=== PATIENT | female | born 1995 | race Caucasian/White ===

== ENCOUNTER 2021-06-18 15:57 | Emergency (ER) | payer BC, OTHER ==
[~2021-06-18] VITALS: Ht 165.1 cm; Wt 54.4 kg
[2021-06-18] MEDS ORDERED: OLANZAPINE 10 MG VIAL IM ONE ×2 (16:25→16:30)
[2021-06-18] MEDS ORDERED: LORAZEPAM 2 MG/1 ML VIAL ONE (16:30)
--- NOTE | 2021-06-18 16:55 | NUR ---
Strategic Account Director assumes care: received patient asleep on her right side, on a gurney inside ER bed 3, sedated with IV Ativan. Patient was heard earlier cursing loudly and being belligerent with the nurse discharge Mojgan in the ER hallways. [facility] security screener, [employer] officers and paramedics were assisting our nurse discharge Mojgan. Maintained on continuous cardiac, BP & SpO2 monitors with alarms set,on & audible.
[2021-06-18 17:04] LABS: HEMATOCRIT 40.9 % (31.2-41.9); MEAN CORPUSCULAR HEMOGLOBIN 29.8 uug (24.7-32.8); MEAN CORPUSCULAR VOLUME 89.1 fL (75.5-95.3); PLATELET COUNT (AUTO) 242 K/uL (179-408)
[2021-06-18 17:10] LABS: CARBON DIOXIDE 22 mmol/L (21-32); CHLORIDE 104 mmol/L (98-107); CREATININE 0.5 mg/dL (0.6-1.3); GLUCOSE 90 mg/dL (74-106); POTASSIUM 3.9 mmol/L (3.5-5.1); UREA NITROGEN, BLOOD 9 mg/dL (7-18)
[2021-06-18 17:16] LABS: ACETAMINOPHEN < 2.0 ug/mL (10-30); ALANINE AMINOTRANSFERASE 18 U/L (14-59); ALKALINE PHOSPHATASE 40 U/L (50-136); ASPARTATE AMINOTRANSFERASE 33 U/L (15-37); BILIRUBIN,DIRECT 0.1 mg/dL (0.0-0.2); BILIRUBIN,TOTAL 0.4 mg/dL (0.2-1.0); TOTAL PROTEIN, SERUM 7.3 g/dL (6.4-8.2)
[2021-06-18 17:23] LABS: THYROID STIMULATING HORMONE 0.914 mIU/mL (0.358-3.740)
[2021-06-18 17:32] LABS: ETHANOL 245 MG/DL (0-0)
[2021-06-18] MEDS ORDERED: LORAZEPAM 2 MG/1 ML VIAL IV ONE (18:15)
--- NOTE | 2021-06-18 18:27 | NUR ---
Patient is resting comfortably on gurney with eyes closed, continuous SpO2 monitor shows=98%-100% room air, moving all extremities, still drowsy from IV Ativan, pending results and disposition.
[2021-06-18 18:31] LABS: *BILIRUBIN,URIN NEGATIVE (NEGATIVE); *BLOOD, URINE NEGATIVE (NEGATIVE); *CLARITY,URINE CLEAR (CLEAR); *COLOR,URINE YELLOW (YELLOW); *KETONES,URINE NEGATIVE (NEGATIVE); *UROBILINOGEN,URINE 0.2 E.U./dl (NORMAL); LEUKOCYTE ESTERASE ,URINE NEGATIVE (NEGATIVE); NITRITE, URINE NEGATIVE (NEGATIVE); PH,URINE 5.5 (5.0-8.0); UGLUCOSE NEGATIVE (NEGATIVE)
[2021-06-18 18:43] LABS: *AMPHETAMINE, URINE NEGATIVE (NEGATIVE); *CANNABINOID, URINE NEGATIVE (NEGATIVE); *COCCAINE, URINE NEGATIVE (NEGATIVE); *OPIATE, URINE NEGATIVE (NEGATIVE); *PHENCYCLIDINE SCREEN,URINE NEGATIVE (NEGATIVE)
--- NOTE | 2021-06-18 19:03 | NUR ---
Patient is for soberiety with ER observation status until mentation & behavior are at baseline. SBAR to RN Cat.
--- NOTE | 2021-06-18 19:03 | NUR ---
Margarita mauricio in EDM - 06/18/21 at 1921 by JORY Patient is "admitted to TRANSITION UNIT" for medical-surgical floor admission, pending available nurse & room in 3rd floor at this time. SBAR to RN Cat.
--- NOTE | 2021-06-18 20:22 | NUR ---
PT AMBULATED TO RESTROOM, STEADY GAIT.
[2021-06-18] MEDS ORDERED: PROCHLORPERAZINE EDISYLATE 10 MG/2 ML VIAL IV ONE (21:15)
[2021-06-18] MEDS ORDERED: ONDANSETRON 4 MG/2 ML VIAL IV ONE (21:30)
[2021-06-18] MEDS ORDERED: IV NS 1000 ML 1,000 ML IV ONE (21:30)
[2021-06-18] MEDS ORDERED: PROCHLORPERAZINE EDISYLATE 10 MG/2 ML VIAL ONE (21:37)
--- NOTE | 2021-06-18 21:45 | NUR ---
Patient discharged to home in stable condition. Written and verbal after care instructions given. Patient verbalizes understanding of instructions. Stressed follow up or return to ER for worsening s/s. Denies any n/v/d. No VELA/dizziness. Denies any pain/dicomfort upon discharge. A/O x4. Steady gait. Accompanied by significant other (Hayes).
[2021-06-18 21:56] VITALS: BP 118/70
== END 2021-06-18 21:55 | disposition home or self-care (01) ==
LOC: ER 16:00
DX: F10.129 Alcohol abuse with intoxication, unspecified (principal); Y90.8 Blood alcohol level of 240 mg/100 ml or more; M79.7 Fibromyalgia; R11.0 Nausea; Z88.5 Allergy status to narcotic agent; R00.0 Tachycardia, unspecified; R51.9 Headache, unspecified
CPT/HCPCS: 36415; 80048; 80076; 80299; 80307; 80320; 81003; 84443; 85025; 93005; 96361; 96374; 96375; 99284; J0780; J2060; A4663; G0480; J2358; J7030